=== PATIENT | female | born 1950 | race Caucasian/White ===

== ENCOUNTER 2021-01-22 13:58 | Emergency (ER) | payer OTHER ==
[~2021-01-22] VITALS: Ht 157.5 cm; Wt 68.0 kg
[2021-01-22 14:02] VITALS: BP 128/90
--- NOTE | 2021-01-22 14:13 | NUR ---
PT MOVED TO BED 6.
--- NOTE | 2021-01-22 14:39 | NUR ---
70YO F BIBA FROM HOME D/T ALTERED MENTAL STATUS. DAUGHTER STATES SHE TOOK UNKNOWN NUMBER OF VALIUM PILLS AND HAS BEEN ACTING ERRATIC AND AGITATED. DAUGHTER REPORTED THAT PT HAS HX OF MIXING HER PILLS WITH ETOH. IN ED, PT ARRIVED IN 4 POINT RESTRAINTS. SHE IS AGITATED, CRYING AND PRAYING REPEATEDLY IN SWEDISH. AOX3. PT IS TACHYCARDIC @ 113BPM. CLEAR BREATH SOUNDS. PT CHANGED TO GOWN. ERMD MADE AWARE OF PT STATUS. HX DEPRESSION, HTN
[2021-01-22] MEDS ORDERED: OLANZapine 10 MG VIAL IM ONE (14:40)
--- NOTE | 2021-01-22 15:17 | NUR ---
Joslyn chao in [facility] - 01/22/21 at 1532 by [facility] CPVOD SWAB DONE. WALKED TO LAB
--- NOTE | 2021-01-22 15:17 | NUR ---
COVID SWAB DONE. WALKED TO LAB.
--- NOTE | 2021-01-22 15:32 | NUR ---
PT NOW CALM AND COOPERATIVE.
--- NOTE | 2021-01-22 15:32 | NUR ---
[facility]
[2021-01-22 16:03] LABS: ALBUMIN 3.8 g/dL (3.4-5.0); ANION GAP 12.6 (8-16); CARBON DIOXIDE 25.9 mmol/L (21-32); CREATININE 0.8 mg/dL (0.6-1.3); POTASSIUM 3.5 mmol/L (3.5-5.1); THYROID STIMULATING HORMONE 1.23 uIU/mL (0.34-3.74); TOTAL BILIRUBIN 0.3 mg/dL (0.0-1.0)
[2021-01-22 16:08] LABS: BASOPHILS % (AUTO) 0.3 % (0.0-2.0); EOSINOPHILS % (AUTO) 0.4 % (0.0-4.0); HEMATOCRIT 38.9 % (36-48); LYMPHOCYTES # (AUTO) 0.7 K/uL (2.5-16.5); LYMPHOCYTES % (AUTO) 16.6 % (20.5-51.1); MEAN CORPUSCULAR HEMOGLOBIN 31 pg (27-31); MEAN CORPUSCULAR HGB CONC 34 g/dL (33-37); MEAN CORPUSCULAR VOLUME 93.7 fL (80-94); MONOCYTES # (AUTO) 0.2 K/uL (0.8-1.0); MONOCYTES % (AUTO) 5.3 % (1.7-9.3); NEUTROPHILS # (AUTO) 3.4 K/uL (1.8-7.7); NEUTROPHILS % (AUTO) 77.4 % (42.2-75.2); PLATELET COUNT (AUTO) 204 K/uL (140-450); RED BLOOD CELL COUNT(AUTO) 4.15 MIL/uL (4.20-5.40); RED CELL DISTRIBUTION WIDTH 13.6 % (11.6-13.7); WHITE BLOOD COUNT (AUTO) 4.4 K/uL (4.8-10.8)
[2021-01-22 16:34] LABS: APPEARANCE,URINE CLEAR (CLEAR); BILIRUBIN,URINE NEGATIVE (NEGATIVE); BLOOD, URINE TRACE-I (NEGATIVE); COLOR,URINE YELLOW (YELLOW); LEUKOCYTE ESTERASE ,URINE NEGATIVE (NEGATIVE); NITRITE, URINE NEGATIVE (NEGATIVE); UGLUCOSE NEGATIVE (NEGATIVE)
[2021-01-22 16:36] LABS: ACETAMINOPHEN < 0.5 ug/ml (10-30); SALICYLATE < 2.8 mg/dL (2.8-20.0)
--- NOTE | 2021-01-22 16:49 | NUR ---
NOVEL SWAB DONE. WALKED TO LAB.
[2021-01-22 16:54] LABS: BARBITURATE, URINE NEGATIVE ng/ml (NEG <=200)
[2021-01-22 16:55] LABS: BENZODIAZEPINE, URINE POSITIVE ng/mL (NEG <=200); CANNABINOID, URINE NEGATIVE ng/mL (NEG <=50); COCAINE, URINE NEGATIVE ng/mL (NEG <=300); OPIATE, URINE NEGATIVE ng/mL (NEG <=2000); PHENCYCLIDINE SCREEN,URINE NEGATIVE ng/mL (NEG <=25)
--- NOTE | 2021-01-22 17:29 | NUR ---
PT MEDICALLY CLEARED BY DR MCMANUS
--- NOTE | 2021-01-22 19:24 | NUR ---
REPORT GIVEN TO MAX COSBY. ALL CARE TRANSFERRED AT THIS TIME.
--- NOTE | 2021-01-22 19:30 | NUR ---
PT IS SITTING UP IN BED TALKING TO DAUGTER. PT IS CALM AND COOPERATIVE. DENIES PAIN AND DISCOMFORT.
--- NOTE | 2021-01-22 20:00 | NUR ---
SPOKE TO VALDO FROM [facility], REPORT GIVEN. STATED WHEN PT IS ACCEPTED I CAN CALL AND GIVE THE RN REPORT.
--- NOTE | 2021-01-22 21:36 | NUR ---
REPORT GIVEN TO MAX GAINES AT [facility]. GOING TO RM [address].
--- NOTE | 2021-01-22 21:37 | NUR ---
PT IS AWAKE AND ALERT SITTING UP IN BED WITH DAUGHTER. PT IS CALM AND COOPERATIVE.
[2021-01-22 21:53] VITALS: BP 105/50
--- NOTE | 2021-01-22 21:53 | NUR ---
Patient to be transferred to [facility]. Is being transferred due to [facility]. Receiving facility has accepting physician and available space. ER physician has signed transfer form. Patient or responsible alliance party has agreed to transfer and signed form. Patient belongings inventoried and will be sent with patient. Copy of nursing notes, lab reports, EKG, Physicians Orders and X-rays to be sent with patient. Report called to MAX GAINES at receiving facility. [facility] ambulance service has been called for transfer. ETA is 1HR.
== END 2021-01-22 21:53 ==
LOC: MED 13:58
DX: F29 Unspecified psychosis not due to a substance or known physiological condition (principal); I10 Essential (primary) hypertension; F32.9 Major depressive disorder, single episode, unspecified; Z20.822 Contact with and (suspected) exposure to COVID-19
CPT/HCPCS: 36415; 70450; 71045; 80053; 80305; 81003; 82140; 84443; 85025; 87426; 93005; 96372; 99285; G0480; G0482; J3490; U0003